=== PATIENT | male | born 1970 | race Two or more races ===

== ENCOUNTER 2024-03-08 15:57 | Inpatient (IN) | payer MEDICAID, OTHER ==
[~2024-03-08] VITALS: Ht 167.6 cm; Wt 86.5 kg
[2024-03-08 16:28] LABS: Basophils # (auto) 0.1 10 ^3/uL (0-0.2); Basophils % (auto) 1.1 % (0.0-2.0); Eosinophils # (auto) 0.2 10 ^3/uL (0-0.8); Eosinophils % (auto) 2.1 % (0.0-7.0); Hemoglobin 13.8 g/dL (13.5-17.5); Lymphocytes # (auto) 0.8 10 ^3/uL (0.4-5.4); Lymphocytes % (auto) 11.1 % (10.0-50.0); Mean Corpuscular Hemoglobin 32.1 pg (28.0-32.0); Mean Corpuscular Hgb Conc. 33.7 g/dL (32.0-36.0); Mean Corpuscular Volume 95.2 fL (80.0-100.0); Monocytes # (auto) 0.8 10 ^3/uL (0-1.3); Monocytes % (auto) 10.3 % (0.0-12.0); Neutrophils # (auto) 5.6 10 ^3/uL (1.6-8.6); Neutrophils % (auto) 75.4 % (37.0-80.0); Red Cell Distribution Width 12.8 % (11.8-14.3); White Blood Cell 7.4 10^3/uL (4.4-10.8)
[2024-03-08 16:48] LABS: Alanine Aminotransferase 26 U/L (7-40); Albumin 4.5 g/dL (3.2-4.8); Alkaline Phosphatase 87 U/L (46-116); Anion Gap 9 (5-15); Aspartate Aminotransferase 14 U/L (13-40); BUN/Creatinine Ratio 9.2 (10.0-20.0); Bilirubin, Total 0.3 mg/dL (0.2-1.0); Blood Urea Nitrogen 10 mg/dL (9-23); Calcium 9.2 mg/dL (8.5-10.1); Carbon Dioxide 18 mmol/L (20-30); Chloride 112 mmol/L (98-107); Glucose 102 mg/dL (74-106); Magnesium 1.7 mg/dL (1.6-2.6); Potassium 3.6 mmol/L (3.5-5.1); Sodium 139 mmol/L (136-145); Total Protein 6.6 g/dL (5.7-8.2)
[2024-03-08] MEDS ORDERED: HYDROcodone-ACET 5/325MG TAB PO PRN (17:45)
[2024-03-08] MEDS ORDERED: hydrALAZINE HCL 20 MG/ML VL IV PRN (17:45)
[2024-03-08] MEDS ORDERED: ONDANSETRON HCL 4 MG/2 ML VIAL IV PRN (17:45)
[2024-03-08] MEDS ORDERED: DOCUSATE SOD 100 MG CAP PO PRN (17:45)
[2024-03-08] MEDS ORDERED: ACETAMINOPHEN 325 MG TAB PO PRN (17:45)
[2024-03-08] MEDS ORDERED: NITROGLYCERIN 0.4 MG SL TAB SL PRN (18:15)
[2024-03-08] MEDS ORDERED: MORPHINE SULFATE INJ 2 MG/ml SYRG IV PRN (18:15)
[2024-03-08] MEDS: SODIUM CHLORIDE 0.9% 1,000 ML IV SCH (19:03)
[2024-03-08] MEDS: ASPirin 325 MG TAB PO ONE (19:03)
[2024-03-08] MEDS: NITROGLYCERIN 0.4 MG SL TAB SL ONE (19:03)
[2024-03-08 22:42] VITALS: BP 117/81; PULSE 91; RESP 20; TEMP 98.2; O2SAT 95
[2024-03-08] MEDS: ATORVASTATIN 20 MG TAB PO SCH (23:45)
[2024-03-09] VITALS (7 sets, daily range): BP systolic 97–130; BP diastolic 56–81; PULSE 63–94; RESP 15–22; TEMP 97.5–98.2; O2SAT 94–100
[2024-03-09 06:14] LABS: Basophils # (auto) 0.1 10 ^3/uL (0-0.2); Basophils % (auto) 1.6 % (0.0-2.0); Eosinophils # (auto) 0.3 10 ^3/uL (0-0.8); Eosinophils % (auto) 4.8 % (0.0-7.0); Hematocrit 38.8 % (41.0-53.0); Hemoglobin 12.8 g/dL (13.5-17.5); Lymphocytes # (auto) 1.5 10 ^3/uL (0.4-5.4); Lymphocytes % (auto) 23.3 % (10.0-50.0); Mean Corpuscular Hemoglobin 31.5 pg (28.0-32.0); Mean Corpuscular Volume 95.3 fL (80.0-100.0); Monocytes # (auto) 0.6 10 ^3/uL (0-1.3); Monocytes % (auto) 9.5 % (0.0-12.0); Neutrophils # (auto) 3.8 10 ^3/uL (1.6-8.6); Neutrophils % (auto) 60.8 % (37.0-80.0); Red Blood Cells 4.07 10^6/uL (4.5-5.90); White Blood Cell 6.2 10^3/uL (4.4-10.8)
[2024-03-09 06:37] LABS: Alanine Aminotransferase 20 U/L (7-40); Albumin 3.6 g/dL (3.2-4.8); Alkaline Phosphatase 80 U/L (46-116); Anion Gap 6 (5-15); Aspartate Aminotransferase 15 U/L (13-40); Blood Urea Nitrogen 9 mg/dL (9-23); Carbon Dioxide 23 mmol/L (20-30); Chloride 112 mmol/L (98-107); Glucose 125 mg/dL (74-106); Potassium 3.7 mmol/L (3.5-5.1); Sodium 141 mmol/L (136-145)
[2024-03-09 06:38] LABS: Bilirubin, Total < 0.2 mg/dL (0.2-1.0); Total Protein 5.6 g/dL (5.7-8.2)
[2024-03-09 09:00] LABS: Urine Bacteria None Seen /hpf (None Seen)
[2024-03-09 09:14] LABS: Urine Blood Negative /uL (Negative); Urine Clarity Clear (Clear); Urine Color Light-Yellow (Yellow); Urine Protein, UAD Negative (Negative); Urine Specific Gravity 1.013 (1.001-1.035); Urine Urobilinogen Normal (Negative); Urine WBC 3 /hpf (0 - 3); Urine pH 5.5 (5.0-9.0)
[2024-03-09 09:31] LABS: Amphetamine Screen, Urine Neg (NEGATIVE)
[2024-03-09 09:33] LABS: Barbiturate Scree,Urine Neg (NEGATIVE); Benzodiazephine Screen, Urine Neg (NEGATIVE); Cannabinoid Screen, Urine Neg (NEGATIVE); Cocaine Screen, Urine Pos (NEGATIVE); Opiate Scree,Urine Neg (NEGATIVE); Phencyclidine Screen, Urine Neg (NEGATIVE)
[2024-03-09] MEDS: ASPirin 81 mg TAB PO SCH (10:32)
[2024-03-09 14:53] LABS: Triglycerides 171 mg/dL (< 150)
[2024-03-09 14:54] LABS: LDL Cholesterol 82 mg/dL (< 100)
[2024-03-09 14:55] LABS: Cholesterol 150 mg/dL (< 200); HDL Cholesterol 44 mg/dL (40-59)
[2024-03-10 01:00] VITALS: BP 131/79; PULSE 83; RESP 17; TEMP 98.1; O2SAT 100
[2024-03-10 05:00] VITALS: BP 94/44; PULSE 61; RESP 19; TEMP 98.2; O2SAT 100
[2024-03-10] MEDS ORDERED: GEMF600T PO (07:49)
[2024-03-10 08:00] VITALS: PULSE 77; RESP 18; O2SAT 98
[2024-03-10 09:00] VITALS: BP 109/69; PULSE 77; RESP 16; TEMP 97.9; O2SAT 98
== END 2024-03-10 12:45 | disposition home or self-care (01) | DRG 816 ==
LOC: ER 16:00 → TELE 18:14 → TELE-CENTR 18:14
PROVIDERS: ADMIT Family Medicine; ATTEND Family Medicine
DX: T40.5X1A Poisoning by cocaine, accidental (unintentional), initial encounter (principal); E66.9 Obesity, unspecified; E78.1 Pure hyperglyceridemia; F14.10 Cocaine abuse, uncomplicated; F41.9 Anxiety disorder, unspecified; I10 Essential (primary) hypertension; R73.03 Prediabetes; Z86.73 Personal history of transient ischemic attack (TIA), and cerebral infarction without residual deficits; Z88.0 Allergy status to penicillin; Z79.899 Other long term (current) drug therapy; Z93.3 Colostomy status; Z59.00 Homelessness unspecified; Z91.199 Patient's noncompliance with other medical treatment and regimen due to unspecified reason; Z68.30 Body mass index [BMI] 30.0-30.9, adult; Z71.51 Drug abuse counseling and surveillance of drug abuser; Y92.89 Other specified places as the place of occurrence of the external cause
CPT/HCPCS: 36415; 71045; 80053; 80061; 80307; 81001; 83036; 83735; 83880; 84443; 84484; 85025; 93005; 93306; G0378

== ENCOUNTER 2024-07-05 09:06 | Emergency (ER) | payer MEDICAID ==
[~2024-07-05] VITALS: Ht 167.6 cm; Wt 87.0 kg
[~2024-07-05 09:06] MED LIST: GEMF600T PO
--- NOTE | 2024-07-05 09:51 | ED.PDOC ---
History of Present Illness(SKN HPI Comments 53-year-old male patient presents to the clinic for erythema and inflammation to the right ankle. 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 Patient reports that there was a blister in this area. Patient has been squeezing to get out the drainage. Erythema number patient has spread from the original laceration site and extends to the mid foot and below the right calf. Patient denies any fevers. Patient reports the pain is an 8/10. Patient has been taking a leave with the pain. Patient denies any significant medical history. Patient denies any history of delayed wound healing or diabetes. Chief Complaint: Wound Check Time Seen by MD: 09:30 Primary Care Provider: ESTELLA Allergies: Coded Allergies: Penicillins (Verified Allergy, Unknown, 03/08/24) Home Meds Active Scripts Sulfamethoxazole W/Trimethopri (Bactrim Ds Tablet) 1 Tab Tb, 1 TAB PO BID for 10 Days, #20 TAB 0 Refills Prov:SHELLIE PATINO [facility] 07/05/24 Ibuprofen (Ibuprofen) 800 Mg Tab, 800 MG PO Q8HP PRN for 21 Days, #63 TAB Prov:SHELLIE PATINO [facility] 07/05/24 Gemfibrozil (Lopid) 600 Mg Tab, 1 TAB PO BID, #180 TAB 3 Refills Prov:PIERRE JENSEN MD 03/10/24 Information Source: Patient Mode of Arrival: Ambulatory Severity: Moderate Past Medical History PAST MEDICAL HISTORY: High Lipids, HTN Surgical History: Denies all surgeries Family History Family History: Reviewed,noncontributory to illness Social History Smoker: Non-Smoker Alcohol: Denies ETOH Use Drugs: Denies Drug Use Lives In: Home Constitutional: denies: chills, diaphoresis, fatigue, fever, malaise, sweats, weakness, others EENTM: denies: blurred vision, double vision, ear bleeding, ear discharge, ear drainage, ear pain, ear ringing, eye pain, eye redness, hearing loss, mouth pain, mouth swelling, nasal discharge, nose bleeding, nose congestion, nose pain, photophobia, tearing, throat pain, throat swelling, voice changes, others Respiratory: denies: cough, hemoptysis, orthopnea, SOB at rest, shortness of breath, SOB with excertion, stridor, wheezing, others Cardiovascular: denies: chest pain, dizzy spells, diaphoresis, Dyspnea on exertion, edema, irregular heart beat, left arm pain, lightheadedness, palpita tions, PND, syncope, others Gastrointestinal: denies: abdomen distended, abdominal pain, blood streaked qasim wels, constipated, diarrhea, dysphagia, difficulty swallowing, hematemesis, melena, nausea, poor appetite, poor fluid intake, rectal bleeding, rectal pain, vomiting, others Genitourinary: denies: burning, dysuria, flank pain, frequency, hematuria, incontinence, penile discharge, penile sore, pain, testicle pain, testicle swelling, urgency, others Neurological: denies: dizziness, fainting, headache, left sided numbness, left sided weakness, numbness, paresthesia, pre-existing deficit, right sided numbness, right sided weakness, seizure, speech problems, tingling, tremors, weakness, others Musculoskeletal: reports: joint pain (Right ankle) Integumetry: reports: bruises (Right knee), change in color (Erythema to the right ankle), wounds (Abrasion to the right ankle posterior) Allergic/Immunocompromised: denies: Difficulty Healing, Frequent Infections, Hives, Itching, others Hematologic/Lymphatic: denies: anemia, blood clots, easy bleeding, easy bruising, swollen glands, others Endocrine: denies: excessive hunger, excessive sweating, excessive thirst, excessive urination, flushing, intolerance to cold, intolerance to heat, unexplained weight gain, unexplained weight loss, others Psychiatric: denies: anxiety, bipolar disorder, depression, hopeless, panic disorder, schizophrenia, sleepless, suicidal, others All Other Systems: Reviewed and Negative (Per HPI) Physical Exam General Appearance: No Apparent Distress, Normal HEENT: Normal ENT Inspection, Pharynx Normal, TMs Normal Neck: Full Range of Motion, Non-Tender, Normal, Normal Inspection Respiratory: Chest Non-Tender, Lungs Clear, No Accessory Muscle Use, No Respiratory Distress, Normal Breath Sounds Cardiovascular: No Edema, No JVD, No Murmur, No Gallop, Normal Peripheral Pulses, Regular Rate/Rhythm Breast Exam: Deferred Gastrointestinal: No Organomegaly, Non Tender, No Pulsatile Mass, Normal Bowel Sounds, Soft Genitalia: Deferred Pelvic: Deferred Rectal: Deferred Extremities: Inflammation, Swelling, Tender Musculoskeletal : Location: Right Extremity Location: Ankle Apperance: Swelling, Tenderness: Moderate, Other (Erythema, open blister to the posterior right ankle with mild drainage. 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 Was a procedure done?: No X-Ray, Labs, Meds, VS Vital Signs Date Time Temp Pulse Resp B/P (MAP) Pulse Ox O2 Delivery O2 Flow Rate FiO2 07/05/24 12:29 98.7 89 16 142/82 (102) 97 98.7 07/05/24 09:39 96 16 94 Room Air 07/05/24 09:39 99.0 96 16 118/80 (93) 94 99.0 07/05/24 09:20 99.0 96 16 118/80 (93) 99 Lab Test 07/05/24 10:01 07/05/24 09:52 Range/Units White Blood Count 6.7 4.4-10.8 10^3/uL Red Blood Count 4.45 L 4.5-5.90 10^6/uL Hemoglobin 14.3 13.5-17.5 g/dL Hematocrit 42.0 41.0-53.0 % Mean Corpuscular Volume 94.4 80.0-100.0 fL Mean Corpuscular Hemoglobin 32.2 H 28.0-32.0 pg Mean Corpuscular Hemoglobin Concent 34.1 32.0-36.0 g/dL Red Cell Distribution Width 12.5 11.8-14.3 % Platelet Count 329 140-450 10^3/uL Mean Platelet Volume 7.9 6.9-10.8 fL Neutrophils (%) (Auto) 73.1 37.0-80.0 % Lymphocytes (%) (Auto) 14.6 10.0-50.0 % Monocytes (%) (Auto) 8.3 0.0-12.0 % Eosinophils (%) (Auto) 2.8 0.0-7.0 % Basophils (%) (Auto) 1.2 0.0-2.0 % Neutrophils # (Auto) 4.9 1.6-8.6 10 ^3/uL Lymphocytes # (Auto) 1.0 0.4-5.4 10 ^3/uL Monocytes # (Auto) 0.6 0-1.3 10 ^3/uL Eosinophils # (Auto) 0.2 0-0.8 10 ^3/uL Basophils # (Auto) 0.1 0-0.2 10 ^3/uL Nucleated Red Blood Cells 0.0 % Sodium Level 140 136-145 mmol/L Potassium Level 4.3 3.5-5.1 mmol/L Chloride Level 106 98-107 mmol/L Carbon Dioxide Level 30 20-31 mmol/L Anion Gap 4 L 5-15 Blood Urea Nitrogen 16 9-23 mg/dL Creatinine 1.21 0.700-1.30 mg/dL Glomerular Filtration Rate Calc 72 >90 mL/min BUN/Creatinine Ratio 13.2 10.0-20.0 Serum Glucose 94 74-106 mg/dL Calcium Level 9.5 8.7-10.4 mg/dL Total Bilirubin 0.7 0.2-1.0 mg/dL Aspartate Amino Transferase (AST) 14 13-40 U/L Alanine Aminotransferase (ALT) 15 7-40 U/L Alkaline Phosphatase 94 46-116 U/L C-Reactive Protein High Sensitivity 1.79 H <1.0 mg/dL Total Protein 7.6 5.7-8.2 g/dL Albumin 4.6 3.2-4.8 g/dL Urine Color Light-yellow Yellow Urine Clarity Clear Clear Urine pH 7.0 5.0-9.0 Urine Specific [place] 1.019 1.001-1.035 Urine Protein Negative Negative Urine Ketones Negative Negative Urine Blood Negative Negative /uL Urine Nitrite Negative Negative Urine Bilirubin Negative Negative Urine Urobilinogen Normal Negative mg/dL Urine Leukocyte Esterase Negative Negative /uL Urine RBC 1 0 - 3 /hpf Urine WBC <1 0 - 3 /hpf Urine Squamous Epithelial Cells Few <5 /hpf Urine Bacteria None seen None Seen /hpf Urine Glucose Normal Normal mg/dL Current Medications Medications (Trade) Dose Ordered Sig/Jose Route Start Time Stop Time Status Last Admin Ibuprofen (Motrin Tablet) 800 mg ONCE ONCE PO 07/05/24 09:45 07/05/24 10:15 DC 07/05/24 10:21 Diphtheria/ Tetanus/Acell Pertussis (Boostrix T-Dap) 0.5 ml ONCE ONCE IM 07/05/24 09:45 07/05/24 10:15 DC 07/05/24 10:22 Ceftriaxone Sodium (Rocephin) 1,000 mg ONCE ONCE IM 07/05/24 09:45 07/05/24 10:15 DC 07/05/24 10:21 Bacitracin 1 applic ONCE ONCE TOP 07/05/24 12:15 07/05/24 12:17 DC 07/05/24 12:23 Bacitracin 1 applic ONCE ONCE TOP 07/05/24 12:15 07/05/24 12:17 DC 07/05/24 12:23 PATIENT: DENIS VEE ACCT: [id number] UNIT: [id number] : 1970 LOC: ER ROOM / BED: / AGE / SEX: 53 / M ADM STATUS: REG ER SERVICE 7 ORDERING PHYSICIAN: SHELLIE PATINO [employer] ARTIST PROCEDURE(s): RANKL - R ANKLE 3 VIEW REASON: r/o osteomyelitis ORDER NUMBER(s): [id number], ACCESSION NUMBER(s): [id number] CLINICAL INDICATION: r/o osteomyelitis TECHNIQUE: XY R ANKLE 3 VIEW Comparison: None FINDINGS/IMPRESSION: There is no evidence of acute fracture or dislocation. Diffuse soft-tissue swelling and edema most prominent at the lateral malleolus. ATED BY: FAHAD CHILDS MD DICTATED DATE/TIME: 07/05/24 102 SIGNED BY: FAHAD CHILDS MD SIGNED DATE/TIME: 07/05/24 1029 X-Ray, Labs, Meds, VS Comment Patient advised to keep area clean and dry. Patient advised to antibiotics and anti-inflammatories as prescribed. Patient instructed to return in 2 days for wound check. Patient returns if wound or erythema increases in size. Patient to return for any worsening symptoms. On re-evaluation patient has symptomatic improvement. Patient is stable for discharge at this time. All test results and diagnostic imaging have been interpreted. All diagnostic findings, discharge care, and education instruction provided to the patient. Patient to return to ER in 2 days for wound check. Follow-up with PCP in 2-3 days Patient verbalized understanding, discharge instructions and agrees to treatment plan Vital signs are stable Patient is ambulatory Patient advised of which symptoms necessitate a return visit to the emergency room. Patient to return emergency room for any new worsening symptoms. Patient is aware that the purpose of this visit is for an acute medical emergency requiring emergent stabilization. Chronic conditions, including malignancies have not been ruled out. Patient is instructed to follow up with PCP as directed for continued care and workup. If unable to arrange follow up, patient is to return to the emergency room for reassessment. Patient was given verbal and written discharge instructions and acknowledges understanding Time of 1ST Reevaluation: 12:04 Reevaluation 1ST: Improved Patient Education/Counseling: Diagnosis, Treatment, Prognosis Family Education/Counseling: Diagnosis, Treatment, Prognosis Departure 1 Departure Time of Disposition: 12:13 Impression: Primary Impression: Cellulitis Qualified Codes: L03.116 - Cellulitis of left lower limb Additional Impressions: Abrasion Ankle pain, left Qualified Codes: M25.572 - Pain in left ankle and joints of left foot Disposition: 01 HOME / SELF CARE / HOMELESS Condition: Fair e-Prescriptions Sulfamethoxazole W/Trimethopri (Bactrim Ds Tablet) 1 Tab Tb 1 TAB PO BID for 10 Days, #20 TAB 0 Refills Prov: SHELLIE PATINO 07/05/24 Ibuprofen (Ibuprofen) 800 Mg Tab 800 MG PO Q8HP PRN for 21 Days, #63 TAB Prov: SHELLIE PATINO 07/05/24 Discharged With: Self Critical Care Note Critical Care Time?: No Stability Stability form required: No Heart Score Heart Score: Heart Score Response (Comments) Value History N/A 0 EKG N/A 0 Age N/A 0 Risk Factors N/A 0 Troponin N/A 0 Total 0 SHELLIE PATINO Jul 05, 2024 09:51
[2024-07-05] MEDS: IBUPROFEN 800 MG TAB PO ONE (10:21)
[2024-07-05] MEDS: cefTRIAXone SOD 1,000 MG VL IM ONE (10:21)
[2024-07-05] MEDS: TETANUS-DIPTH-ACEL PERTUSSIS 0.5ML SYR Tdap IM ONE (10:22)
--- NOTE | 2024-07-05 10:31 | DVH ---
CLINICAL INDICATION: r/o osteomyelitis TECHNIQUE: XY R ANKLE 3 VIEW Comparison: None FINDINGS/IMPRESSION: There is no evidence of acute fracture or dislocation. Diffuse soft-tissue swelling and edema most prominent at the lateral malleolus.
[2024-07-05 10:44] LABS: Basophils # (auto) 0.1 10 ^3/uL (0-0.2); Basophils % (auto) 1.2 % (0.0-2.0); Eosinophils # (auto) 0.2 10 ^3/uL (0-0.8); Eosinophils % (auto) 2.8 % (0.0-7.0); Hemoglobin 14.3 g/dL (13.5-17.5); Lymphocytes % (auto) 14.6 % (10.0-50.0); Mean Corpuscular Hemoglobin 32.2 pg (28.0-32.0); Mean Corpuscular Hgb Conc. 34.1 g/dL (32.0-36.0); Mean Corpuscular Volume 94.4 fL (80.0-100.0); Monocytes # (auto) 0.6 10 ^3/uL (0-1.3); Monocytes % (auto) 8.3 % (0.0-12.0); Neutrophils # (auto) 4.9 10 ^3/uL (1.6-8.6); Neutrophils % (auto) 73.1 % (37.0-80.0); Platelet Count (auto) 329 10^3/uL (140-450); Red Blood Cells 4.45 10^6/uL (4.5-5.90); Red Cell Distribution Width 12.5 % (11.8-14.3); White Blood Cell 6.7 10^3/uL (4.4-10.8)
[2024-07-05 11:07] LABS: Alanine Aminotransferase 15 U/L (7-40); Albumin 4.6 g/dL (3.2-4.8); Alkaline Phosphatase 94 U/L (46-116); Anion Gap 4 (5-15); Aspartate Aminotransferase 14 U/L (13-40); BUN/Creatinine Ratio 13.2 (10.0-20.0); Bilirubin, Total 0.7 mg/dL (0.2-1.0); Blood Urea Nitrogen 16 mg/dL (9-23); Calcium 9.5 mg/dL (8.7-10.4); Carbon Dioxide 30 mmol/L (20-31); Chloride 106 mmol/L (98-107); Glucose 94 mg/dL (74-106); Potassium 4.3 mmol/L (3.5-5.1); Sodium 140 mmol/L (136-145); Total Protein 7.6 g/dL (5.7-8.2)
[2024-07-05 11:15] LABS: CRP High Sensitivity 1.79 mg/dL (<1.0)
[2024-07-05 11:16] LABS: Urine Bacteria None Seen /hpf (None Seen)
[2024-07-05 11:30] LABS: Urine Blood Negative /uL (Negative); Urine Clarity Clear (Clear); Urine Color Light-Yellow (Yellow); Urine Protein, UAD Negative (Negative); Urine Specific Gravity 1.019 (1.001-1.035); Urine Urobilinogen Normal (Negative); Urine WBC <1 /hpf (0 - 3)
[2024-07-05] MEDS ORDERED: IBUP-1456 PO (12:11)
[2024-07-05] MEDS ORDERED: BACDST PO (12:11)
[2024-07-05] MEDS: BACITRACIN TOP OINT 1 UD PKG TOP ONE ×2 (12:23)
[2024-07-05 12:29] VITALS: BP 142/82; PULSE 89; RESP 16; TEMP 98.7; O2SAT 97
== END 2024-07-05 12:30 | disposition home or self-care (01) ==
LOC: ER 09:06
DX: S90.511A Abrasion, right ankle, initial encounter (principal); L03.116 Cellulitis of left lower limb; E78.5 Hyperlipidemia, unspecified; I10 Essential (primary) hypertension; Z79.899 Other long term (current) drug therapy; W22.8XXA Striking against or struck by other objects, initial encounter; Y93.89 Activity, other specified; Y92.89 Other specified places as the place of occurrence of the external cause; Y99.8 Other external cause status
CPT/HCPCS: 36415; 73610; 80053; 81001; 85025; 86141; 90471; 90715; 96372; 99284; J0696

== ENCOUNTER 2024-08-15 10:40 | Inpatient (IN) | payer MEDICAID ==
[~2024-08-15] VITALS: Ht 167.6 cm; Wt 195.8 kg
[~2024-08-15 10:40] MED LIST changes: +BACDST PO; +IBUP-1456 PO
--- NOTE | 2024-08-15 11:10 | ED.PDOC ---
SOB-HPI HPI Comments 53 y.o male with a PMH of CVA x2, TX, HDL, and kidney disease, presents to the ED for a chief complaint to the ED for a chief complaint of SOB associated with a fever, nausea and vomiting that started last night around 0300. Patient reports taking Tylenol for fever and mentions also taking an at home Covid-19 test which resulted positive. Patient denies any chest pain, chills, recent contact exposure, or leg swelling. He denies any substance, alcohol or tobacco use. Time Seen by MD: 10:58 Primary Care Provider: ESTELLA Melchor notes: Nurses Notes, Medications, Allergies Information Source: Patient Mode of Arrival: Ambulatory Severity: Moderate Timing: Hours Duration: Since onset Context: At Rest PE Risk Factors: None History of: None Modifying Factors: Nothing Associated Signs and Symptoms: Fever, Other (nausea and vomiting ) Past Medical History PAST MEDICAL HISTORY: CKF, CVA, High Lipids, HTN, [place] Surgical History: Denies all surgeries Family History Family History: Reviewed,noncontributory to illness Social History Smoker: Non-Smoker Alcohol: Denies ETOH Use Drugs: Denies Drug Use Lives In: Home Constitutional: reports: fever; denies: chills, diaphoresis, fatigue, malaise, sweats, weakness, others EENTM: denies: blurred vision, double vision, ear bleeding, ear discharge, ear drainage, ear pain, ear ringing, eye pain, eye redness, hearing loss, mouth pain, mouth swelling, nasal discharge, nose bleeding, nose congestion, nose pain, photophobia, tearing, throat pain, throat swelling, voice changes, others Respiratory: reports: SOB at rest, shortness of breath, SOB with excertion; denies: cough, hemoptysis, orthopnea, stridor, wheezing, others Cardiovascular: denies: chest pain, dizzy spells, diaphoresis, Dyspnea on exer tion, edema, irregular heart beat, left arm pain, lightheadedness, palpitations, PND, syncope, others Gastrointestinal: reports: nausea, vomiting; denies: abdomen distended, abdominal pain, blood streaked bowels, constipated, diarrhea, dysphagia, difficulty swallowing, hematemesis, melena, poor appetite, poor fluid intake, rectal bleeding, rectal pain, others Genitourinary: denies: burning, dysuria, flank pain, frequency, hematuria, incontinence, penile discharge, penile sore, pain, testicle pain, testicle swelling, urgency, others Neurological: denies: dizziness, fainting, headache, left sided numbness, left sided weakness, numbness, paresthesia, pre-existing deficit, right sided numbness, right sided weakness, seizure, speech problems, tingling, tremors, weakness, others Musculoskeletal: denies: back pain, gout, joint pain, joint swelling, muscle pain, muscle stiffness, neck pain, others Integumetry: denies: bruises, change in color, change in hair/nails, dryness, laceration, lesions, lumps, rash, wounds, others Allergic/Immunocompromised: denies: Difficulty Healing, Frequent Infections, Hives, Itching, others Hematologic/Lymphatic: denies: anemia, blood clots, easy bleeding, easy bruising, swollen glands, others Endocrine: denies: excessive hunger, excessive sweating, excessive thirst, excessive urination, flushing, intolerance to cold, intolerance to heat, unexplained weight gain, unexplained weight loss, others Psychiatric: denies: anxiety, bipolar disorder, depression, hopeless, panic disorder, schizophrenia, sleepless, suicidal, others All Other Systems: Reviewed and Negative Physical Exam General Appearance: Moderate Distress HEENT: Normal ENT Inspection, Pharynx Normal, TMs Normal Neck: Full Range of Motion, Non-Tender, Normal, Normal Inspection Respiratory: Chest Non-Tender, Decreased Breath Sounds, No Accessory Muscle Use, Rhonchi Cardiovascular: No Edema, No JVD, No Murmur, No Gallop, Normal Peripheral Pulses, Regular Rate/Rhythm Breast Exam: Deferred Gastrointestinal: No Organomegaly, Non Tender, No Pulsatile Mass, Normal Bowel Sounds, Soft Genitalia: Deferred Pelvic: Deferred Rectal: Deferred Extremities: No calf tenderness, Normal capillary refill, No pedal edema Musculoskeletal : Apperance: Normal 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 Was a procedure done?: No Differential Dx Differential Diagnosis: Bronchitis, Respiratory Distress, URI, Other (Influenza, vital syndrome ) X-Ray, Labs, Meds, VS Vital Signs Date Time Temp Pulse Resp B/P (MAP) Pulse Ox O2 Delivery O2 Flow Rate FiO2 08/15/24 11:31 91 16 97 Room Air* 0 21 08/15/24 11:31 91 16 125/75 (92) 95 08/15/24 11:10 94 08/15/24 11:06 94 08/15/24 11:02 98.3 106 16 117/83 (94) 97 Lab Test 08/15/24 11:43 08/15/24 11:35 Range/Units White Blood Count 7.1 4.4-10.8 10^3/uL Red Blood Count 4.55 4.5-5.90 10^6/uL Hemoglobin 14.3 13.5-17.5 g/dL Hematocrit 43.4 41.0-53.0 % Mean Corpuscular Volume 95.3 80.0-100.0 fL Mean Corpuscular Hemoglobin 31.4 28.0-32.0 pg Mean Corpuscular Hemoglobin Concent 32.9 32.0-36.0 g/dL Red Cell Distribution Width 13.4 11.8-14.3 % Platelet Count 308 140-450 10^3/uL Mean Platelet Volume 7.3 6.9-10.8 fL Neutrophils (%) (Auto) 37.0-80.0 % Lymphocytes (%) (Auto) 10.0-50.0 % Monocytes (%) (Auto) 0.0-12.0 % Basophils (%) (Auto) 0.0-2.0 % Neutrophils # (Auto) 1.6-8.6 10 ^3/uL Lymphocytes # (Auto) 0.4-5.4 10 ^3/uL Monocytes # (Auto) 0-1.3 10 ^3/uL Differential Total Cells Counted 100.0 100 Neutrophils % (Manual) 69 37.0-80.0 Band Neutrophils % (Manual) 0 Lymphocytes % (Manual) 20 10.0-50.0 Monocytes % (Manual) 7 0-12 Eosinophils % (Manual) 4 0-7 Basophils % (Manual) 0 0.0-2.0 Metamyelocytes % (manual) 0 Myelocytes % (Manual) 0 Promyelocytes % (Manual) 0 Blast Cells % (Manual) 0 Reactive Lymphocytes 0 Platelet Estimate Adequate Sodium Level 144 136-145 mmol/L Potassium Level 4.5 3.5-5.1 mmol/L Chloride Level 109 H 98-107 mmol/L Carbon Dioxide Level 30 20-31 mmol/L Anion Gap 5 5-15 Blood Urea Nitrogen 11 9-23 mg/dL Creatinine 1.06 0.700-1.30 mg/dL Glomerular Filtration Rate Calc 85 >90 mL/min BUN/Creatinine Ratio 10.4 10.0-20.0 Serum Glucose 79 74-106 mg/dL Calcium Level 9.5 8.7-10.4 mg/dL Urine Color Pending Urine Clarity Pending Urine pH Pending Urine Specific [place] Pending Urine Protein Pending Urine Ketones Pending Urine Blood Pending Urine Nitrite Pending Urine Bilirubin Pending Urine Urobilinogen Pending Urine Leukocyte Esterase Pending Urine RBC Pending Urine WBC Pending Urine Squamous Epithelial Cells Pending Urine Bacteria Pending Urine Glucose Pending Influenza Type A Antigen Negative Negative Influenza Type B Antigen Negative Negative SARS-CoV-2 Antigen (Rapid) Negative NEGATIVE Current Medications Medications (Trade) Dose Ordered Sig/Jose Route Start Time Stop Time Status Last Admin Ondansetron HCl (Zofran Po) 4 mg ONCE ONCE PO 08/15/24 11:15 08/15/24 11:16 DC 08/15/24 11:30 XY CHEST TWO VIEWS ROUTINE IMPRESSION: 1. No radiographic evidence of acute cardiopulmonary disease. The patient was given Zofran 4 mg by mouth for the nausea and vomiting The influenza a and influenza B are negative The COVID test is negative The patient's CBC is within normal limits The chemistry panel is within normal limits At this time, the patient was being admitted to the hospitalist Images Reviewed?: Images reviewed and evaluated by me Time of 1ST Reevaluation: 11:09 Reevaluation 1ST: Unchanged Time of 2ND Reevaluation: 17:16 Reevaluation 2ND: Improved Patient Education/Counseling: Diagnosis, Treatment, Prognosis Family Education/Counseling: No Family Present Departure 1 Departure Time of Disposition: 17:11 Impression: Primary Impression: Acute respiratory failure Qualified Codes: J96.01 - Acute respiratory failure with hypoxia Disposition: ADMITTED INPATIENT Admit to: [facility] Condition: Fair Critical Care Note Critical Care Time?: No Stability Stability form required: Yes Unstable for transfer: Telemetry monitoring (Telemetry monitoring required), ED Physician Assesment (Clinical assesment) I personally scribed for MOSHE,GIANFRANCO B MD ([email or web address]) on 08/15/24 at 11:09. Electronically submitted by Tabitha Ramirez ([facility]). I personally scribed for GIANFRANCO MESA MD ([facility]) on 08/15/24 at 11:10. Electronically submitted by Tabitha Ramirez ([facility]). I personally scribed for GIANFRANCO MESA MD ([facility]) on 08/15/24 at 12:04. Electronically submitted by Tabitha Ramirez ([facility]). GIANFRANCO MESA MD Aug 15, 2024 11:09
[2024-08-15] MEDS: ONDANSETRON ODT 4 MG TAB PO ONE (11:30)
[2024-08-15 11:31] VITALS: PULSE 91; RESP 16; O2SAT 97
--- NOTE | 2024-08-15 11:38 | DVH ---
XY CHEST TWO VIEWS ROUTINE CLINICAL HISTORY: cough COMPARISON: Chest radiograph 03/08/2024 TECHNIQUE: Frontal and lateral view of the chest was obtained FINDINGS: Lines and Tubes: None Lungs: No focal consolidation. Pleura: No effusion. No pneumothorax. Cardiomediastinal contours: Unremarkable Bones: No acute osseous abnormality. IMPRESSION: 1. No radiographic evidence of acute cardiopulmonary disease. HS:Y
[2024-08-15 11:55] LABS: Hematocrit 43.4 % (41.0-53.0); Hemoglobin 14.3 g/dL (13.5-17.5); Mean Corpuscular Hemoglobin 31.4 pg (28.0-32.0); Mean Corpuscular Hgb Conc. 32.9 g/dL (32.0-36.0); Mean Corpuscular Volume 95.3 fL (80.0-100.0); Platelet Count (auto) 308 10^3/uL (140-450); Red Blood Cells 4.55 10^6/uL (4.5-5.90); Red Cell Distribution Width 13.4 % (11.8-14.3); White Blood Cell 7.1 10^3/uL (4.4-10.8)
[2024-08-15 12:01] LABS: Band Neutrophils % (manual) 0; Basophils % (manual) 0 (0.0-2.0); Blast Cells 0; Metamyelocytes % 0; Myelocytes % 0; Promyelocytes % 0; Reactive Lymphocytes 0
[2024-08-15 12:05] LABS: Potassium 4.5 mmol/L (3.5-5.1); Sodium 144 mmol/L (136-145)
[2024-08-15 12:06] LABS: Anion Gap 5 (5-15); Calcium 9.5 mg/dL (8.7-10.4); Carbon Dioxide 30 mmol/L (20-31)
[2024-08-15 12:11] LABS: BUN/Creatinine Ratio 10.4 (10.0-20.0); Blood Urea Nitrogen 11 mg/dL (9-23); Chloride 109 mmol/L (98-107); Glucose 79 mg/dL (74-106)
[2024-08-15 12:20] LABS: COVID19 ANTIGEN SOFIA FIA NEGATIVE (NEGATIVE); Rapid Influenza A Negative (Negative); Rapid Influenza B Negative (Negative)
[2024-08-15 12:31] LABS: Eosinophils % (manual) 4 (0-7); Lymphocytes % (manual) 20 (10.0-50.0); Monocytes % (manual) 7 (0-12); Platelet Estimate Adequate
[2024-08-15 19:00] VITALS: BP 108/65; PULSE 76; RESP 18; TEMP 98.3; O2SAT 95
[2024-08-15] MEDS ORDERED: TEMAZEPAM 15 MG CAP PO PRN (20:00)
[2024-08-15] MEDS ORDERED: ONDANSETRON HCL 4 MG/2 ML VIAL IV PRN (20:00)
[2024-08-15] MEDS ORDERED: ALBUTEROL SULF 2.5 MG/0.5ML(0.5%) NEB SOLN NEB PRN (20:00)
[2024-08-15] MEDS ORDERED: ACETAMINOPHEN 325 MG TAB PO PRN (20:00)
[2024-08-15 22:24] VITALS: BP 108/65; PULSE 76; RESP 18; TEMP 98.6; O2SAT 95
[2024-08-15 23:11] LABS: Urine Bacteria None Seen /hpf (None Seen)
--- NOTE | 2024-08-15 23:17 | DVHHP2 ---
History of Present Illness Reason for Visit: Shortness of breaths History of Present Illness 53-year-old male presents for evaluation of shortness for breath. Patient presents with a one day history of intermittent shortness for breath with associated fever and nausea. He reports coming in to be examined due to previous history of OR in two CVA episodes. He states testing himself at home with a COVID test which was positive. In the emergency department Krista test was negative. Reports mild shortness for breath. No chest pain or palpitations. No other acute complaints. Past Medical History Hypertension, mi, dyslipidemia Past Surgical History Denies Family History Noncontributory Smoke: No ALCOHOL: none Drugs: None Lives: with Family Review of Systems Review of Systems Review of systems are currently negative otherwise addressed in HPI. Allergies: Coded Allergies: Penicillins (Verified Allergy, Unknown, 03/08/24) Medications Current Medications Medications Dose Ordered Sig/Jose Route Start Time Stop Time Status Last Admin Dose Admin Albuterol 2.5 mg Q6HPRN PRN NEB 08/15/24 20:00 Temazepam 15 mg QHSP PRN PO 08/15/24 20:00 Ondansetron HCl 4 mg Q4HP PRN IV 08/15/24 20:00 Acetaminophen 650 mg Q6HP PRN PO 08/15/24 20:00 Aspirin 81 mg DAILY PO 08/16/24 10:00 Exam Vital Signs Vital Signs Date Time Temp Pulse Resp B/P (MAP) Pulse Ox O2 Delivery O2 Flow Rate FiO2 08/15/24 22:24 98.6 76 18 108/65 (79) 95 98.6 08/15/24 11:31 Room Air* 0 21 Exam Gen: 53-year-old male in mild distress Skin: Warm, dry, normal color and texture, no rash. HEENT: Normocephalic atraumatic, mucous membranes moist and pink. Neck: Cervical and supraclavicular nodes normal without enlargement, trachea is midline, thyroid gland is normal without masses. Pulmonary: Diminished breath sounds bilaterally Cardiac: Regular rate and rhythm. No murmur Abdomen: Soft, nontender, nondistended, bowel sounds present all 4 quadrants, no guarding, no rigidity, no organomegaly. Extremities: No cyanosis, clubbing, no edema Neuro: Cranial nerves II through XII grossly intact, normal affect and speech, no focal motor deficits. Labs/Xrays ORDERING PHYSICIAN: GIANFRANCO MESA MD PROCEDURE(s): CXR2 - CHEST TWO VIEWS ROUTINE REASON: cough ORDER NUMBER(s): [id number], ACCESSION NUMBER(s): [id number] CHEST TWO VIEWS ROUTINE CLINICAL HISTORY: cough COMPARISON: Chest radiograph 03/08/2024 TECHNIQUE: Frontal and lateral view of the chest was obtained FINDINGS: Lines and Tubes: None Lungs: No focal consolidation. Pleura: No effusion. No pneumothorax. Cardiomediastinal contours: Unremarkable Bones: No acute osseous abnormality. IMPRESSION: 1. No radiographic evidence of acute cardiopulmonary disease. HS:Y Labs Test 08/15/24 23:00 08/15/24 11:43 08/15/24 11:35 Range/Units White Blood Count 7.1 4.4-10.8 10^3/uL Red Blood Count 4.55 4.5-5.90 10^6/uL Hemoglobin 14.3 13.5-17.5 g/dL Hematocrit 43.4 41.0-53.0 % Mean Corpuscular Volume 95.3 80.0-100.0 fL Mean Corpuscular Hemoglobin 31.4 28.0-32.0 pg Mean Corpuscular Hemoglobin Concent 32.9 32.0-36.0 g/dL Red Cell Distribution Width 13.4 11.8-14.3 % Platelet Count 308 140-450 10^3/uL Mean Platelet Volume 7.3 6.9-10.8 fL Neutrophils (%) (Auto) 37.0-80.0 % Lymphocytes (%) (Auto) 10.0-50.0 % Monocytes (%) (Auto) 0.0-12.0 % Basophils (%) (Auto) 0.0-2.0 % Neutrophils # (Auto) 1.6-8.6 10 ^3/uL Lymphocytes # (Auto) 0.4-5.4 10 ^3/uL Monocytes # (Auto) 0-1.3 10 ^3/uL Differential Total Cells Counted 100.0 100 Neutrophils % (Manual) 69 37.0-80.0 Band Neutrophils % (Manual) 0 Lymphocytes % (Manual) 20 10.0-50.0 Monocytes % (Manual) 7 0-12 Eosinophils % (Manual) 4 0-7 Basophils % (Manual) 0 0.0-2.0 Metamyelocytes % (manual) 0 Myelocytes % (Manual) 0 Promyelocytes % (Manual) 0 Blast Cells % (Manual) 0 Reactive Lymphocytes 0 Platelet Estimate Adequate Sodium Level 144 136-145 mmol/L Potassium Level 4.5 3.5-5.1 mmol/L Chloride Level 109 H 98-107 mmol/L Carbon Dioxide Level 30 20-31 mmol/L Anion Gap 5 5-15 Blood Urea Nitrogen 11 9-23 mg/dL Creatinine 1.06 0.700-1.30 mg/dL Glomerular Filtration Rate Calc 85 >90 mL/min BUN/Creatinine Ratio 10.4 10.0-20.0 Serum Glucose 79 74-106 mg/dL Calcium Level 9.5 8.7-10.4 mg/dL Influenza Type A Antigen Negative Negative Influenza Type B Antigen Negative Negative SARS-CoV-2 Antigen (Rapid) Negative NEGATIVE Assessment/Plan Assessment/Plan Assessment Acute respiratory distress Hypertension History of CVA History of [place] Plan [place] [facility] [place] Resume home medications Continue treatment per orders. Plan discussed with: Patient My Orders Orders - ANUJ MARROQUIN Procedure Category Date Status Time Albuterol Medneb PHA 08/15/24 In Process (Ventolin Medneb) 20:00 Basic Metabolic Panel LAB 08/16/24 Verified 04:00 Admit ADMIT 08/15/24 Transmitted 19:47 Temazepam (Restoril) PHA 08/15/24 In Process 20:00 Ondansetron Hcl PHA 08/15/24 In Process (Zofran) 20:00 Cardiac DIET 08/16/24 Transmitted Diet-2gna,Lofat,Lochol Breakfast Condition: Stable TASHIA 08/15/24 In Process 19:47 Acetaminophen Tablet PHA 08/15/24 In Process (Tylenol Tablet) 20:00 Bedrest With Bathroom TASHIA 08/15/24 In Process Privileg 19:47 Aspirin Tablet PHA 08/16/24 In Process 10:00 Date of Service: Aug 15, 2024 Billing Provider: ANUJ MARROQUIN Common Visit Codes: [id number] INP/OBS CARE (HIGH) ANUJ MARROQUIN Aug 15, 2024 23:17
[2024-08-15 23:19] LABS: Urine Blood Negative /uL (Negative); Urine Clarity Clear (Clear); Urine Color Light-Yellow (Yellow); Urine Protein, UAD Negative (Negative); Urine Specific Gravity 1.017 (1.001-1.035); Urine Urobilinogen Normal (Negative); Urine WBC 1 /hpf (0 - 3)
[2024-08-16] VITALS (7 sets, daily range): BP systolic 97–110; BP diastolic 57–71; PULSE 60–72; RESP 16–19; TEMP 97.5–98.2; O2SAT 96–99
[2024-08-16 04:42] LABS: Sodium 142 mmol/L (136-145)
[2024-08-16 04:43] LABS: Anion Gap 6 (5-15); Calcium 9.6 mg/dL (8.7-10.4); Carbon Dioxide 28 mmol/L (20-31)
[2024-08-16 04:48] LABS: Blood Urea Nitrogen 14 mg/dL (9-23); Chloride 108 mmol/L (98-107); Glucose 98 mg/dL (74-106)
[2024-08-16] MEDS: ASPirin 81 mg TAB PO SCH (08:19)
[2024-08-16 08:20] LABS: Cocaine Screen, Urine Pos (NEGATIVE)
[2024-08-16 08:22] LABS: Amphetamine Screen, Urine Neg (NEGATIVE); Barbiturate Scree,Urine Neg (NEGATIVE); Benzodiazephine Screen, Urine Neg (NEGATIVE); Cannabinoid Screen, Urine Neg (NEGATIVE); Opiate Scree,Urine Neg (NEGATIVE); Phencyclidine Screen, Urine Neg (NEGATIVE)
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
[2024-08-17] VITALS (7 sets, daily range): BP systolic 111–117; BP diastolic 67–75; PULSE 68–80; RESP 15–18; TEMP 36.7; O2SAT 94–100
--- NOTE | 2024-08-17 10:12 | ECG ---
[facility] Test Date: 2024-08-15 Test Time: 11:06:35 Pat Name: DENIS VEE Department: ER Room: 0280 A Gender: M Therapist Physical: ROSA : 1970 Requested By: BEATRIZ FISHER Order Number: [id number] Reading MD: Zafar Oconnor Measurements Intervals [place] Rate: 94 P: 65 HI: 147 QRS: -64 QRSD: 95 T: 35 QT: 354 QTc: 443 Interpretive Statements Sinus rhythm Inferior infarct, old Consider anterior infarct Electronically Signed On 08-19-2024 10:18:16 PST by Zafar Oconnor Please click the below link to view image of tracing.
[2024-08-17] MEDS ORDERED: ASPI1TAB19 PO (14:09)
[2024-08-17] MEDS ORDERED: ATOR40TA52 PO (14:09)
[2024-08-17] MEDS ORDERED: ALUMSUS16 PO (14:09)
--- NOTE | 2024-08-17 18:32 | DVHDSRES ---
Discharge Summary Date of Admission Resident Creating Document: BEATRIZ FISHER RESIDENT Aug 15, 2024 at 19:47 Date of Discharge: Aug 17, 2024 Admitting Diagnosis Chest pain Labs/Diagnostic Data: Laboratory Results Test 08/17/24 10:36 08/16/24 03:32 08/15/24 23:00 08/15/24 11:43 Troponin I High Sensitivity < 3 ng/L (</=54) Sodium Level 142 mmol/L (136-145) Potassium Level 4.0 mmol/L (3.5-5.1) Chloride Level 108 mmol/L (98-107) Carbon Dioxide Level 28 mmol/L (20-31) Anion Gap 6 (5-15) Blood Urea Nitrogen 14 mg/dL (9-23) Creatinine 1.17 mg/dL (0.700-1.30) Glomerular Filtration Rate Calc 75 mL/min (>90) BUN/Creatinine Ratio 12.0 (10.0-20.0) Serum Glucose 98 mg/dL (74-106) Calcium Level 9.6 mg/dL (8.7-10.4) Urine Color Light-yellow (Yellow) Urine Clarity Clear (Clear) Urine pH 6.0 (5.0-9.0) Urine Specific [place] 1.017 (1.001-1.035) Urine Protein Negative (Negative) Urine Ketones Negative (Negative) Urine Blood Negative /uL (Negative) Urine Nitrite Negative (Negative) Urine Bilirubin Negative (Negative) Urine Urobilinogen Normal mg/dL (Negative) Urine Leukocyte Esterase Negative /uL (Negative) Urine RBC None seen /hpf (0 - 3) Urine WBC 1 /hpf (0 - 3) Urine Squamous Epithelial Cells None seen /hpf (<5) Urine Bacteria None seen /hpf (None Seen) Urine Glucose Normal mg/dL (Normal) Urine Opiates Screen Neg (NEGATIVE) Urine Fentanyl Screen Neg (NEGATIVE) Urine Barbiturates Screen Neg (NEGATIVE) Urine Phencyclidine Screen Neg (NEGATIVE) Urine Amphetamines Screen Neg (NEGATIVE) Urine Benzodiazepines Screen Neg (NEGATIVE) Urine Cocaine Screen Pos (NEGATIVE) Urine Cannabinoids Screen Neg (NEGATIVE) White Blood Count 7.1 10^3/uL (4.4-10.8) Red Blood Count 4.55 10^6/uL (4.5-5.90) Hemoglobin 14.3 g/dL (13.5-17.5) Hematocrit 43.4 % (41.0-53.0) Mean Corpuscular Volume 95.3 fL (80.0-100.0) Mean Corpuscular Hemoglobin 31.4 pg (28.0-32.0) Mean Corpuscular Hemoglobin Concent 32.9 g/dL (32.0-36.0) Red Cell Distribution Width 13.4 % (11.8-14.3) Platelet Count 308 10^3/uL (140-450) Mean Platelet Volume 7.3 fL (6.9-10.8) Neutrophils (%) (Auto) % (37.0-80.0) Lymphocytes (%) (Auto) % (10.0-50.0) Monocytes (%) (Auto) % (0.0-12.0) Basophils (%) (Auto) % (0.0-2.0) Neutrophils # (Auto) 10 ^3/uL (1.6-8.6) Lymphocytes # (Auto) 10 ^3/uL (0.4-5.4) Monocytes # (Auto) 10 ^3/uL (0-1.3) Differential Total Cells Counted 100.0 (100) Neutrophils % (Manual) 69 (37.0-80.0) Band Neutrophils % (Manual) 0 Lymphocytes % (Manual) 20 (10.0-50.0) Monocytes % (Manual) 7 (0-12) Eosinophils % (Manual) 4 (0-7) Basophils % (Manual) 0 (0.0-2.0) Metamyelocytes % (manual) 0 Myelocytes % (Manual) 0 Promyelocytes % (Manual) 0 Blast Cells % (Manual) 0 Reactive Lymphocytes 0 Platelet Estimate Adequate Test 08/15/24 11:35 Influenza Type A Antigen Negative (Negative) Influenza Type B Antigen Negative (Negative) SARS-CoV-2 Antigen (Rapid) Negative (NEGATIVE) Other Laboratory Tests 08/16/24 03:32 08/15/24 11:43 Brief Hx & Hospital Course: Patient is a 53-year-old male with past medical history of CAD, NSTEMI, CVA, ? CKD and SBO, who came in due to chest pain that has been ongoing for the past 4 days. Patient also notes trouble breathing that has been ongoing for many weeks and nausea, vomiting: Patient notes he had 3 episodes of vomiting yesterday. Patient notes that he was in the hospital earlier this year where he was told to follow up with the casing tier for "clogged arteries" , however, patient notes he has not been able to follow up with a casing tier in the outpatient clinic. Patient notes that he has been feeling more tired than usual. Moreover, patient notes that he feels a left-sided chest pressure during strenuous activities including but not limited to sexual intercourse. 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 Hospital course: Serial troponins were <3, EKG showed sinus rhythm. Inferior infarct, old. CXR showed no radiographic evidence of acute cardiopulmonary disease. COVID and influenza testing were negative. UDS was positive for cocaine, patient was counseled in detail about the harmful effects of cocaine on heart health and overall health. Patient was instructed to follow up with casing tier in the outpatient clinic after having stopped using cocaine. Patient demonstrated understanding. On the day of discharge, patient appeared well and had stable vital signs. Denied any active ongoing pain or discomfort. His hospital course was uncomplicated. Patient was sent home with aspirin 81 mg, atorvastatin 40 mg and Maalox as needed. General Appearance: Cooperative. Well developed. Well nourished. NAD Head Exam: Normal inspection Neck Exam: Normal inspection. Non-tender. Normal alignment Pulmonary/Respiratory: Chest non-tender. Clear bilateral breath sounds, no crackles, no wheezing. Cardiovascular/Chest: Regular rate and rhythm. No murmurs. No JVD. Peripheral Pulses: 2+ Radial (R). 2+ Radial (L). 2+ Pedal (R). 2+ Pedal (L) Abdominal Exam: Normal bowel sounds. Soft. normal abdomen, no visible veins, Nontender. No hepatospenomegaly. No masses Ankle Exam: Negative ankle edema Lower extremities: Negative lower extremity edema Neuro/Mental Status: A&O x4. Coherent. Thoughts/Psych: Normal thought pattern. Appropriate mood and affect. Good judgement and insight Skin Exam: Normal inspection. Normal color. Warm. Dry Condition at Discharge: Good Final Diagnosis/Problems List Likely coronary vasospasm due to cocaine abuse; ruled out respiratory failure, currently on room air with no distress noted Cocaine abuse History of essential Hypertension, currently patient running on the hypotensive side CKD likely stage II, diagnosed in 2020 History of CVA with no residual deficits History of NSTEMI type 1 Discharge Disposition: Home Discharge Instruct/Medications Diet: Cardiac 2g Na,low cholest Activity: No Restrictions, As Tolerated Follow Up/Referral: please follow up with casing tier in the outpatient clinic for further evaluation Medications: aspirin 81mg daily atorvastatin 40mg daily maalox as needed Discharge Statement: "Patient was advised to return to the ER or call 911 if any headaches, dizziness, shortness of breath, chest pain, abdominal pain, bleeding, fevers, or worsening of medical condition. Patient was counseled about treatment plan, medications, possible side effects, patientverbalized understanding. All questions were answered to the best of my ability. This discharge took greater then 30 minutes in planning, reviewing documentation, counseling the patient, and discussing with other team members." ASSESSMENT ASSESSMENT Assessment Likely coronary vasospasm due to cocaine abuse; ruled out respiratory failure, currently on room air with no distress noted Cocaine abuse History of essential Hypertension, currently patient running on the hypotensive side CKD likely stage II, diagnosed in 2020 History of CVA with no residual deficits History of NSTEMI type 1 Date of Service: Aug 17, 2024 Billing Provider: TAMANNA STEWART MD Common Visit Codes: [id number]/OBS DISCH DAY >30min Coding Comment Comment Attending Attestation I saw and evaluated the patient. I reviewed the residents note and agree with findings and plan as documented in the residents note except as documented below. BEATRIZ FISHER RESIDENT Aug 17, 2024 18:32 TAMANNA STEWART MD Aug 18, 2024 08:23
[2024-08-18 09:08] LABS: Hepatitis B Surface Antigen Negative (Negative); Hepatitis C Antibody Negative (Negative)
== END 2024-08-17 18:25 | disposition home or self-care (01) | DRG 198 ==
LOC: ER 10:40 → OVERFLOW 19:47 → WEST WING 08-17 05:22
PROVIDERS: ADMIT Student in an Organized Health Care Education/Training Program; ATTEND Student in an Organized Health Care Education/Training Program
DX: I25.111 Atherosclerotic heart disease of native coronary artery with angina pectoris with documented spasm (principal); E78.5 Hyperlipidemia, unspecified; F14.10 Cocaine abuse, uncomplicated; I12.9 Hypertensive chronic kidney disease with stage 1 through stage 4 chronic kidney disease, or unspecified chronic kidney disease; Z20.822 Contact with and (suspected) exposure to COVID-19; N18.2 Chronic kidney disease, stage 2 (mild); I25.2 Old myocardial infarction; Z86.73 Personal history of transient ischemic attack (TIA), and cerebral infarction without residual deficits; Z88.0 Allergy status to penicillin
CPT/HCPCS: 36415; 71046; 80048; 80307; 81001; 84484; 85007; 85027; 86803; 87340; 87426; 87804; 93005; G0378; Q0162

== ENCOUNTER 2024-12-07 23:57 | Emergency (ER) | payer SELFPAY ==
[~2024-12-07] VITALS: Ht 167.6 cm; Wt 83.1 kg
[~2024-12-07 23:57] MED LIST changes: +ALUMSUS16 PO; +ASPI1TAB19 PO; +ATOR40TA52 PO; -BACDST PO; -GEMF600T PO; -IBUP-1456 PO
[2024-12-08 02:40] VITALS: BP 134/59; PULSE 94; RESP 20; TEMP 97.7; O2SAT 100
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
== END 2024-12-08 02:41 | disposition home or self-care (01) ==
LOC: ER 23:57
DX: Z02.89 Encounter for other administrative examinations (principal); I12.9 Hypertensive chronic kidney disease with stage 1 through stage 4 chronic kidney disease, or unspecified chronic kidney disease; N18.9 Chronic kidney disease, unspecified; E78.5 Hyperlipidemia, unspecified; Z79.82 Long term (current) use of aspirin; Z79.899 Other long term (current) drug therapy; Z88.0 Allergy status to penicillin

== ENCOUNTER 2025-08-25 21:27 | Inpatient (IN) | payer MEDICAID ==
[~2025-08-25] VITALS: Ht 167.6 cm; Wt 82.0 kg
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
[2025-08-25 22:00] LABS: Hematocrit 42.9 % (41.0-53.0); Hemoglobin 14.5 g/dL (13.5-17.5); Mean Corpuscular Hemoglobin 32.2 pg (28.0-32.0); Mean Corpuscular Volume 95.1 fL (80.0-100.0); Nucleated Red Blood Cells % 0.1 %
[2025-08-25 22:15] LABS: Alanine Aminotransferase 20 U/L (7-40); Alkaline Phosphatase 85 U/L (46-116); Anion Gap 8 (5-15); BUN/Creatinine Ratio 11.1 (10.0-20.0); Blood Urea Nitrogen 14 mg/dL (9-23); Carbon Dioxide 27 mmol/L (20-31); Chloride 107 mmol/L (98-107); Potassium 4.6 mmol/L (3.5-5.1); Sodium 142 mmol/L (136-145)
[2025-08-25 22:16] LABS: Albumin 3.5 g/dL (3.2-4.8); Bilirubin, Total 0.3 mg/dL (0.2-1.0); Calcium 8.4 mg/dL (8.7-10.4); Glucose 162 mg/dL (74-106); Total Protein 5.5 g/dL (5.7-8.2)
--- NOTE | 2025-08-25 22:27 | DVH ---
CLINICAL HISTORY: Chest pain. TECHNIQUE: Single frontal view of the chest was obtained. COMPARISON: XY CHEST TWO VIEWS ROUTINE on DOS: 08/15/24,. FINDINGS: DEVICES/LINES/TUBES: None. LUNGS: Clear. PLEURA: No pneumothorax or pleural effusion. MEDIASTINUM/OTHER: Normal heart size and mediastinal contours. Trachea is midline. BONES: Unremarkable. UPPER ABDOMEN: Unremarkable. IMPRESSION: No acute cardiopulmonary process.
[2025-08-25] MEDS: ASPirin-EC 325mg tab PO ONE (23:02)
[2025-08-25] MEDS: SODIUM CHLORIDE 0.9% 500 ML IV ONE (23:02)
[2025-08-25] MEDS: NITROGLYCERIN 0.4 MG SL TAB SL ONE (23:02)
[2025-08-25] MEDS ORDERED: ONDANSETRON HCL 4 MG/2 ML VIAL IV PRN (23:45)
[2025-08-25] MEDS ORDERED: DOCUSATE SOD 100 MG CAP PO PRN (23:45)
[2025-08-25] MEDS ORDERED: HYDROcodone-ACET 5/325MG TAB PO PRN (23:45)
[2025-08-25] MEDS ORDERED: ACETAMINOPHEN 325 MG TAB PO PRN (23:45)
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
[2025-08-26] MEDS ORDERED: NITROGLYCERIN 0.4 MG SL TAB SL PRN
[2025-08-26] MEDS ORDERED: MORPHINE SULFATE INJ 2 MG/ml SYRG IV PRN
[2025-08-26 02:44] VITALS: PULSE 85; RESP 17; O2SAT 98
[2025-08-26 03:31] LABS: Hematocrit 39.8 % (41.0-53.0); Hemoglobin 13.5 g/dL (13.5-17.5); Mean Corpuscular Hemoglobin 31.9 pg (28.0-32.0); Mean Corpuscular Volume 94.1 fL (80.0-100.0); Nucleated Red Blood Cells % 0.1 %
[2025-08-26 03:53] LABS: Alanine Aminotransferase 19 U/L (7-40); Alkaline Phosphatase 65 U/L (46-116); Anion Gap 8 (5-15); BUN/Creatinine Ratio 18.2 (10.0-20.0); Blood Urea Nitrogen 20 mg/dL (9-23); Carbon Dioxide 27 mmol/L (20-31); Chloride 106 mmol/L (98-107); Glucose 104 mg/dL (74-106); Potassium 4.1 mmol/L (3.5-5.1); Sodium 141 mmol/L (136-145)
[2025-08-26 03:55] LABS: Albumin 3.3 g/dL (3.2-4.8); Bilirubin, Total 0.3 mg/dL (0.2-1.0)
[2025-08-26 04:02] LABS: Calcium 8.0 mg/dL (8.7-10.4); Total Protein 5.0 g/dL (5.7-8.2)
[2025-08-26 04:51] VITALS: PULSE 85; RESP 18; O2SAT 98
[2025-08-26] MEDS: SODIUM CHLOR 0.9% PF (SALINE LOCK) 10ML VIAL/SYR IV SCH (05:23)
[2025-08-26 08:00] VITALS: PULSE 77; PULSE 86; RESP 17; O2SAT 98
[2025-08-26 08:56] VITALS: BP 105/63; PULSE 98; RESP 17; TEMP 98; O2SAT 97
[2025-08-26 13:00] VITALS: BP 98/63; PULSE 86; RESP 17; TEMP 97.9; O2SAT 97
--- NOTE | 2025-08-26 14:26 | DVHDS2 ---
Discharge Summary Date of Admission Aug 25, 2025 at 23:55 Date of Discharge: Aug 26, 2025 Admitting Diagnosis Chest pain Labs/Diagnostic Data: Laboratory Results Test 08/26/25 03:01 08/26/25 00:39 08/25/25 21:45 White Blood Count 7.0 10^3/uL (4.4-10.8) Red Blood Count 4.23 10^6/uL (4.5-5.90) Hemoglobin 13.5 g/dL (13.5-17.5) Hematocrit 39.8 % (41.0-53.0) Mean Corpuscular Volume 94.1 fL (80.0-100.0) Mean Corpuscular Hemoglobin 31.9 pg (28.0-32.0) Mean Corpuscular Hemoglobin Concent 33.9 g/dL (32.0-36.0) Red Cell Distribution Width 13.7 % (11.8-14.3) Platelet Count 302 10^3/uL (140-450) Mean Platelet Volume 7.6 fL (6.9-10.8) Neutrophils (%) (Auto) 72.4 % (37.0-80.0) Lymphocytes (%) (Auto) 15.8 % (10.0-50.0) Monocytes (%) (Auto) 8.4 % (0.0-12.0) Eosinophils (%) (Auto) 2.7 % (0.0-7.0) Basophils (%) (Auto) 0.7 % (0.0-2.0) Neutrophils # (Auto) 5.1 10 ^3/uL (1.6-8.6) Lymphocytes # (Auto) 1.1 10 ^3/uL (0.4-5.4) Monocytes # (Auto) 0.6 10 ^3/uL (0-1.3) Eosinophils # (Auto) 0.2 10 ^3/uL (0-0.8) Basophils # (Auto) 0 10 ^3/uL (0-0.2) Nucleated Red Blood Cells 0.1 % Sodium Level 141 mmol/L (136-145) Potassium Level 4.1 mmol/L (3.5-5.1) Chloride Level 106 mmol/L (98-107) Carbon Dioxide Level 27 mmol/L (20-31) Anion Gap 8 (5-15) Blood Urea Nitrogen 20 mg/dL (9-23) Creatinine 1.10 mg/dL (0.700-1.30) Glomerular Filtration Rate Calc 81 mL/min (>90) BUN/Creatinine Ratio 18.2 (10.0-20.0) Serum Glucose 104 mg/dL (74-106) Calcium Level 8.0 mg/dL (8.7-10.4) Total Bilirubin 0.3 mg/dL (0.2-1.0) Aspartate Amino Transferase (AST) 19 U/L (13-40) Alanine Aminotransferase (ALT) 19 U/L (7-40) Alkaline Phosphatase 65 U/L (46-116) Total Protein 5.0 g/dL (5.7-8.2) Albumin 3.3 g/dL (3.2-4.8) Troponin I High Sensitivity < 3 ng/L (</=54) Hemoglobin A1c 5.4 % A1C (<5.7) Other Laboratory Tests 08/26/25 03:01 Brief Hx & Hospital Course: History of Present Illness The patient is a 54-year-old male with past medical history of CVA, chronic kidney disease, hyperlipidemia, hypertension, MS, and Coronary artery disease who presented to [facility] ED with complaint of chest pain. Patient reports that he has been experiencing left-sided chest pain, nonradiating, rating 5/10, getting worse that prompted this visit. 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 Patient was seen and evaluated in the ED, laboratory data shows WBC 7.1, platelets 314, sodium 142, potassium 4.6, BUN 14, creatinine 1.26, GFR 69, glucose 162, hemoglobin A1c 5.4, calcium 8.4, troponin 3, protein 5.5, blood pressure 100/70, heart rate 89, temperature 97.8 F, O2 saturation 96% on room air. Please see medication orders section in the computer. On my assessment, patient denied chest pain at this moment, no headache, dizziness, diaphoresis, shortness of a vague, no diarrhea, nausea, vomiting, fever, no chills. Patient was admitted for further evaluation and medical management. Course of hospitalization: Patient's troponins were negative x3. EKG negative for any ST changes. Reassessment of the patient by myself reveals normal vital signs. Patient denies having any chest pain. He attributes his symptoms to home stressors, court date, as well as having extreme anxiety. Patient is requesting to be discharged home. He is requesting to be accommodated and patient will be released with instructions to follow up with his PCP at next available appointment. Physical examination General: Alert and Oriented x3. No acute distress. Well-nourished. Eyes: EOMI. Anicteric. HENT: Moist mucous membranes. Lungs: Clear to auscultation bilaterally. No accessory muscle use. Cardiovascular: Regular rate and rhythm. No murmur. No JVD. Abdomen: Soft, non-tender and non-distended. No palpable masses. Extremities: No edema. Non-tender. Skin: No rashes or lesions. Warm. Neurologic: No focal neurological deficits. CN II-XII grossly intact, but not individually tested. Psychiatric: Cooperative. Appropriate mood and affect. Total time spent with patient discussing and formulating plan of care: 35 minutes. This medical document was created using an electronic medical record system with [employer] dictation system. Although this document has been carefully reviewed, there may still be some phonetic and typographical errors. These areas are purely typographical due to imperfections of the software programs, and do not reflect any compromise in the patient's medical care. Condition at Discharge: Guarded Final Diagnosis/Problems List Chest pain secondary to anxiety attack History of illicit drug use Discharge Disposition: Home Discharge Instruct/Medications Diet: Regular Activity: See Comment Follow Up/Referral: Follow up with PCP in 1-2 weeks Medications: No new prescriptions Scheduled Aspirin (Aspirin), 81 MG PO DAILY Atorvastatin Calcium (Atorvastatin Calcium), 1 TAB PO DAILY Scheduled PRN Alum & Mag Hydrox-Simethicone (Maalox Multi Symptom Maxi), 1 MAX PO PRN PRN 36 Discharge Statement: "Patient was advised to return to the ER or call 911 if any headaches, dizziness, shortness of breath, chest pain, abdominal pain, bleeding, fevers, or worsening of medical condition. Patient was counseled about treatment plan, medications, possible side effects, patientverbalized understanding. All questions were answered to the best of my ability. This discharge took greater then 30 minutes in planning, reviewing documentation, counseling the patient, and discussing with other team members." ASSESSMENT ASSESSMENT Assessment Chest pain secondary to anxiety attack Date of Service: Aug 26, 2025 Billing Provider: GEORGINA BEY NP Common Visit Codes: 24678-VON/OBS DISCH DAY >30min GEORGINA BEY NP Aug 26, 2025 14:26
[2025-08-26 17:01] VITALS: BP 107/75; PULSE 77; RESP 16; TEMP 98; O2SAT 98
[2025-08-26] MEDS ORDERED: ATORVASTATIN 20 MG TAB PO SCH (22:00)
--- NOTE | 2025-08-28 10:07 | ECG ---
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
--- NOTE | 2025-08-28 10:08 | ECG ---
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
--- NOTE | 2025-08-28 10:08 | ECG ---
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
== END 2025-08-26 19:15 | disposition home or self-care (01) | DRG 198 ==
LOC: ER 21:27 → OVERFLOW 23:55 → TELE-WESTW 08-26 04:51
PROVIDERS: ADMIT Nurse Practitioner Family; ATTEND Nurse Practitioner Family
DX: R07.89 Other chest pain (principal); I25.10 Atherosclerotic heart disease of native coronary artery without angina pectoris; E78.5 Hyperlipidemia, unspecified; I12.9 Hypertensive chronic kidney disease with stage 1 through stage 4 chronic kidney disease, or unspecified chronic kidney disease; N18.9 Chronic kidney disease, unspecified; F41.9 Anxiety disorder, unspecified; R73.9 Hyperglycemia, unspecified; Z86.73 Personal history of transient ischemic attack (TIA), and cerebral infarction without residual deficits; I25.2 Old myocardial infarction; Z90.49 Acquired absence of other specified parts of digestive tract; Z88.0 Allergy status to penicillin
CPT/HCPCS: 36415; 71045; 80053; 83036; 84484; 85025; 93005; 96360; G0378